=== PATIENT | male | born 1940 | race Hispanic/Latino ===

== ENCOUNTER 2017-10-24 10:22 | Outpatient (CLI) | payer MEDICARE ==
[2017-10-24 11:07] LABS: Hematocrit 42.8 % (35.5-45.6); Hemoglobin 13.9 gm/dl (11.8-15.2); Mean Corpuscular HGB Conc 32 % (32-34); Mean Corpuscular Hemoglobin 34 pg (28-32); Mean Corpuscular Volume 104 fl (84-94); Platelet Count 266 K/mm3 (140-440); Red Blood Count 4.11 M/mm3 (3.65-5.03); Red Cell Distribution Width 14.7 % (13.2-15.2)
[2017-10-24 11:16] LABS: Alanine Aminotransferase 12 units/L (7-56); Albumin 4.1 g/dL (3.9-5); BUN/Creatinine Ratio 24; Blood Urea Nitrogen 19 mg/dL (9-20); Calcium 9.2 mg/dL (8.4-10.2); Hemolysis Index 4
--- NOTE | 2017-10-24 12:53 | XRay Report ---
CHEST 2 VIEWS INDICATION: Solitary pulmonary nodule. COMPARISON: None similar at this institution. FINDINGS: PA and lateral chest radiographs demonstrate right hemidiaphragm approximately 5 cm higher than the left with possible right basilar pleural thickening rather than fluid blunting the costophrenic angle. Clear remainder lungs without significant pleural effusions or CHF. Normal cardiomediastinal silhouette. Slight aortic knob calcifications. Demineralized bones with various degenerative changes. CONCLUSION: No acute chest process with possible chronic changes at the right lung base, as detailed above. Please also correlate clinically with prior relevant imaging, if available. Thank you for the opportunity to participate in this patient's care.
--- NOTE | 2017-10-24 15:52 | Cat Scan Report ---
FINAL REPORT EXAM: CT CHEST W CON HISTORY: Solitary pulmonary nodule TECHNIQUE: Standard enhanced CT of the chest at 2.5 mm and 1.25 mm axial increments. Coronal and sagittal reconstruction was also obtained. Contrast: Intravenous contrast given PRIORS: None. FINDINGS: There are calcified pleural plaques along the anterior right midlung and in the posterior right lung base. Calcified granuloma in the right lower lobe is noted medially. There is mild pleural thickening and atelectasis in the right base posteriorly. Mild ground-glass opacities in the posterior right upper lobe are noted, probably inflammatory. There is no evidence for uncalcified solid nodules, consolidation, vascular congestion, pleural effusion, or pneumothorax. There is no evidence for mediastinal, hilar, or axillary adenopathy. The esophagus is collapsed. The trachea is midline. Cardiovascular structures are within normal limits. Cardiac size and aorta are normal. Images through the lung bases include upper abdomen which show multiple rounded well-defined hypodense foci scattered throughout the liver consistent with small cysts. There is a 1 cm hyperdense hypervascular focus in the dome of the liver, likely a small hemangioma. 1 cm cyst off the upper pole right kidney is noted. Bony structures show no focal abnormalities. There is mild superior endplate narrowing at T3 and T4. Degenerative disc changes are present throughout the thoracic spine with spurs anteriorly throughout the lower thoracic levels. IMPRESSION: 1. No evidence for solid uncalcified pulmonary nodules identified. 2. 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 Findings can be seen with asbestos exposure 3. Mild atelectasis in the right lower lobe. 4. Small ground-glass opacities in the posterior right upper lobe, probably inflammatory. These can be followed with CT in 1 year. 5. Hypervascular focus in the dome of the liver, probably a small hemangioma. This can be further confirmed with dedicated CT of the liver or MRI. 6. Multiple hypodensities in the liver, likely cysts 7. Small low-density cyst in the upper pole right kidney
== END 2017-10-24 10:23 | disposition home or self-care (01) ==
LOC: CT 10:22
PROVIDERS: ATTEND Internal Medicine
DX: J84.10 Pulmonary fibrosis, unspecified (principal); J92.9 Pleural plaque without asbestos; J98.11 Atelectasis; N28.1 Cyst of kidney, acquired; M47.894 Other spondylosis, thoracic region; H26.9 Unspecified cataract; F17.210 Nicotine dependence, cigarettes, uncomplicated; E78.00 Pure hypercholesterolemia, unspecified; I10 Essential (primary) hypertension
CPT/HCPCS: 36415; 71046; 71260; 80053; 82785; 84436; 84443; 85027; Q9967

== ENCOUNTER 2017-10-27 10:04 | Outpatient (CLI) | payer MEDICARE ==
--- NOTE | 2017-10-27 11:37 | Fluoroscopy Report ---
UPPER GI AIR CONTRAST: History: GI reflux, cough. FINDINGS: The patient ingested barium without difficulty. The esophageal contour is normal. There are no ulcerations or filling defects seen in the esophagus. Multiple tertiary contractions were witnessed throughout this exam within the esophagus consistent with mild esophageal spasm. Mild delay in esophageal emptying was suspected. There is no hiatal hernia or reflux. The gastric contour and position appear normal. There are no ulcerations or filling defects in the stomach. The duodenal bulb and duodenal sweep appear normal. IMPRESSION: Esophageal dysmotility. No reflux was witnessed during this exam.
== END 2017-10-27 10:05 | disposition home or self-care (01) ==
LOC: FLUORO 10:04
PROVIDERS: ATTEND Internal Medicine
DX: K21.9 Gastro-esophageal reflux disease without esophagitis (principal); R05 Cough; K22.4 Dyskinesia of esophagus; F17.200 Nicotine dependence, unspecified, uncomplicated; I10 Essential (primary) hypertension
CPT/HCPCS: 74247

== ENCOUNTER 2018-10-17 07:17 | Outpatient (CLI) | payer MEDICARE ==
[2018-10-17 07:40] LABS: Hematocrit 38.9 % (35.5-45.6); Hemoglobin 13.3 gm/dl (11.8-15.2); Mean Corpuscular HGB Conc 34 % (32-34); Mean Corpuscular Volume 108 fl (84-94); Platelet Count 203 K/mm3 (140-440); Red Blood Count 3.61 M/mm3 (3.65-5.03); Red Cell Distribution Width 14.2 % (13.2-15.2)
[2018-10-17 08:04] LABS: Alanine Aminotransferase 11 units/L (7-56); Albumin 3.9 g/dL (3.9-5); BUN/Creatinine Ratio 25; Blood Urea Nitrogen 20 mg/dL (9-20); Calcium 8.6 mg/dL (8.4-10.2); Hemolysis Index 13
--- NOTE | 2018-10-17 09:41 | Cat Scan Report ---
CT CHEST WITH CONTRAST: HISTORY: Followup on pleural. COMPARISON: 10/24/17. TECHNIQUE: Helical CT in 1.25mm intervals following IV contrast. Sagittal and coronal reformatted images. FINDINGS: Thyroid gland: Normal. Tracheobronchial tree: Normal. Esophagus: Normal. Heart: Normal. Pericardium: Normal. Mediastinum: Partially calcified subcarinal lymph nodes are unchanged. No mass or adenopathy. Lung [place]: Minimal patchy peribronchial infiltration is identified in the right upper lobe. This appears to be inflammatory in nature. The remainder of the lungs are clear. Pleural Spaces: Chronic pleural-parenchymal scarring posterior right lung base is unchanged in size and configuration. Smaller partially calcified pleural plaque anterior the right upper lobe is also unchanged. The etiology of this is unclear although previous asbestos exposure could be considered. The left pleura remains unremarkable. Musculoskeletal: Intact. Mild thoracic spondylosis. IMPRESSION: No change.
== END 2018-10-17 07:18 | disposition home or self-care (01) ==
LOC: CT 07:17
PROVIDERS: ATTEND Internal Medicine
DX: J92.9 Pleural plaque without asbestos (principal); M47.814 Spondylosis without myelopathy or radiculopathy, thoracic region; E78.00 Pure hypercholesterolemia, unspecified; I10 Essential (primary) hypertension
CPT/HCPCS: 36415; 71260; 80053; 85027; Q9967